=== PATIENT | male | born 1945 | race Caucasian/White ===

== ENCOUNTER 2020-08-12 06:14 | Day surgery (SDC) | payer OTHER ==
[2020-08-10 12:07] VITALS: BMI 31.8
[2020-08-12 08:54] VITALS: TEMP 98.2
[2020-08-12 09:44] VITALS: BP 130/59; PULSE 70
== END 2020-08-12 09:44 | disposition home or self-care (01) ==
LOC: JASU-ENDO 06:14
PROVIDERS: ATTEND Internal Medicine Gastroenterology
PROC: 0DBL8ZX Excision of Transverse Colon, Via Natural or Artificial Opening Endoscopic, Diagnostic (ICD-10-PCS; 2020-08-12)
PROC: 0DBK8ZX Excision of Ascending Colon, Via Natural or Artificial Opening Endoscopic, Diagnostic (ICD-10-PCS; principal; 2020-08-12 07:30)
DX: D12.2 Benign neoplasm of ascending colon (principal); D12.3 Benign neoplasm of transverse colon; K64.8 Other hemorrhoids; K57.30 Diverticulosis of large intestine without perforation or abscess without bleeding
CPT/HCPCS: 88305-TC